=== PATIENT | female | born 1975 | race Caucasian/White ===

== ENCOUNTER 2016-05-29 17:09 | Emergency (ER) | payer SELFPAY ==
--- NOTE | ~2016-05-29 | CT71 ---
[facility] A Service of [facility] RADIOLOGY TEXT RESULTS PATIENT: CADENCE MAO LOCATION: SED : 73 UNIT #: [id number] AGE: [address]: Lalit Vigil MD SEX: F ORDER DR: [id number] [place] [id number] MR#: [id number] Acc #: [id number] NAME: CADENCE MAO. : 1975 SEX: F STUDY DATE/TIME: 05/29/2016 17:52 UNIT: SED ROOM: STUDY DESCRIPTION: CT Head Wo Contrast Attending Physician: Lalit Vigil M.D. Ordering Physician: Canelo Vidal M.D. Primary Care Physician: Denita Joshua M.D. MEDICAL IMAGING REPORT This report is preliminary unless electronic signature is present. EXAM CT head without contrast performed on 05/29/2016 HISTORY 40-year-old female with dizziness and loss of appetite plus nausea. Symptoms started this morning. TECHNIQUE This CT exam was performed with one or more of the following radiation dose reduction techniques: automatic exposure control, adjustment of mA and/or kV according to patient size, and iterative reconstruction. FINDINGS There is no shift of the midline structures, mass effect or acute hemorrhage present. The banks-white matter interface appears intact and no loss of the insular ribbon is seen. The osseous skull is intact and the paranasal sinuses and mastoid air cells are clear. No middle ear opacity is present. IMPRESSION No acute intracranial abnormality. If clinical symptoms persist, MRI may be of benefit for further evaluation. Dictated by... Zaid Nam M.D. THIS IS AN ELECTRONICALLY VERIFIED REPORT Zaid Nam M.D. at 05/30/2016 5:43 PM RP/pcl [facility] A Service [facility] RADIOLOGY TEXT RESULTS PATIENT: CADENCE MAO LOCATION: SED : 74 UNIT #: [id number] AGE: [address]: Lalit Vigil MD SEX: F ORDER DR: TD: 05/29/2016 22:31 JOB #: [id number] MEDICAL IMAGING REPORT
--- NOTE | ~2016-05-29 | EKG ---
PATIENT: CADENCE MAO UNIT #: [id number] Ventricular Rate: 60 BPM Atrial Rate: 60 BPM P-R Interval: 142 ms QRS Duration: 74 ms Q-T Interval: 416 ms QTC Calculation(Bezet): 416 ms P [place]: 41 degrees Calculated R [place]: 40 degrees Calculated T [place]: 34 degrees Diagnosis Line: Normal sinus rhythm Diagnosis Line: Normal ECG Diagnosis Line: No previous ECGs available Diagnosis Line: Confirmed by MALCOLM WHITE MD ([id number]) on 05/30/2016 Diagnosis Line: 4:43:11 PM INTERPRETING MD: CINDY HOLMAN
[2016-05-29 16:51] LABS: URINE SOURCE CLEAN CATCH
[2016-05-29 16:54] LABS: URINE APPEARANCE CLEAR; URINE BILIRUBIN NEG (NEG); URINE BLOOD 3+ (NEG); URINE COLOR YELLOW; URINE GLUCOSE NEG (NORM); URINE KETONE NEG (NEG); URINE LEUKOCYTE ESTERASE NEG (NEG); URINE NITRATE NEG (NEG); URINE PROTEIN NEG (NEG); URINE SPECIFIC GRAVITY <=1.005 (1.003-1.035); URINE UROBILINOGEN 0.2 MG/DL (NORM)
[2016-05-29 16:56] LABS: MICRO INDICATED? YES
[2016-05-29 17:09] LABS: CULTURE INDICATED? NO; URINE BACTERIA NEG (NEG); URINE RBC 0-2 /[HPF] (0-2); URINE SQUAMOUS EPITHELIAL CELL OCCAS /[HPF]; URINE WBC NEG /[HPF] (0-5)
[~2016-05-29 17:09] MED LIST: CITRATE OF MAG296 ML PO; MIRALAX255 GM PO; PAXIL CR PO; REGLAN PO; VICODIN 5/1 TAB 5/50 PO
== END 2016-05-29 19:32 | disposition home or self-care (01) ==
LOC: SED 17:09
PROVIDERS: Emergency Medicine
DX: H81.10 Benign paroxysmal vertigo, unspecified ear (principal)
CPT/HCPCS: 70450; 81003; 84703; 93005; 96372; 99284; J0780; J1200; J1885